=== PATIENT | female | born 1995 | race Caucasian/White ===

== ENCOUNTER 2023-04-15 01:04 | Emergency (ER) | payer BC ==
[~2023-04-15] VITALS: Ht 162.6 cm; Wt 104.3 kg
[2023-04-15] MEDS ORDERED: HYDR-3980 PO (02:48)
[2023-04-15 03:00] VITALS: BP 90/57; TEMP 98.7; O2SAT 95
== END 2023-04-15 03:34 | disposition home or self-care (01) ==
LOC: ER 01:13
DX: S82.841A Displaced bimalleolar fracture of right lower leg, initial encounter for closed fracture (principal); F32.A Depression, unspecified; Z60.2 Problems related to living alone; X50.1XXA Overexertion from prolonged static or awkward postures, initial encounter; Y93.89 Activity, other specified; Y92.89 Other specified places as the place of occurrence of the external cause; Y99.8 Other external cause status
CPT/HCPCS: 73610-TC